=== PATIENT | female | born 1985 | race Caucasian/White ===

== ENCOUNTER → 2020-02-19 09:43 | Observation (INO) ==
[2020-02-18 20:25] LABS: Basophils % 0.2 %; Eosinophils # 0.1 K/mcL (0.0-0.6); Eosinophils % 0.4 %; Hematocrit 36.8 % (35.3-44.9); Hemoglobin 12.7 g/dL (11.5-15.4); Immature Granulocytes % 0.4 % (0-4); Lymphocytes # 1.8 K/mcL (0.6-4.6); Lymphocytes % 11.6 %; Mean Corpuscular HGB Conc 34.5 g/dL (31.6-35.5); Mean Corpuscular Hemoglobin 31.3 pg (28.0-33.3); Mean Corpuscular Volume 90.6 fL (83.0-100.0); Mean Platelet Volume 10.5 fL (9.4-12.4); Monocytes # 0.9 K/mcL (0.0-1.3); Monocytes % 5.8 %; Neutrophils # 12.8 K/mcL (1.6-8.9); Platelet Count 201 K/mcL (140-400); Red Blood Count 4.06 M/mcL (3.82-4.97); Red Cell Distribution Width 12.3 % (11.5-14.5); Segmented Neutrophils % 81.6 %; White Blood Count 15.7 K/mcL (4.3-11.1)
[2020-02-18 20:32] LABS: Prothrombin Time 11.1 Seconds (9.4-12.1)
[2020-02-18 20:35] LABS: Activated Partial Thrombo Time 28.3 Seconds (26.0-36.0)
== END | disposition home or self-care (01) ==
LOC: 1NENULAB
PROVIDERS: ADMIT Obstetrics & Gynecology; ATTEND Obstetrics & Gynecology

== ENCOUNTER 2020-03-16 06:09 | Inpatient (IN) ==
[2020-03-16] MEDS ORDERED: CeFAZolin 2,000 MG/50 ML BAG IVPB ONE (06:19)
[2020-03-16] MEDS ORDERED: Ringers Solution, Lactated 1,000 ML IVC ONE (06:19)
[2020-03-16] MEDS ORDERED: Famotidine 20 MG/2 ML VIAL IVP ONE (06:19)
[2020-03-16] MEDS ORDERED: Metoclopramide 10 MG/2 ML VIAL IVP ONE (06:19)
[2020-03-16 06:54] LABS: Basophils % 0.3 %; Eosinophils # 0.1 K/mcL (0.0-0.6); Eosinophils % 0.9 %; Hematocrit 35.6 % (35.3-44.9); Hemoglobin 12.3 g/dL (11.5-15.4); Immature Granulocytes % 0.8 % (0-4); Lymphocytes % 17.3 %; Mean Corpuscular HGB Conc 34.6 g/dL (31.6-35.5); Mean Corpuscular Hemoglobin 31.3 pg (28.0-33.3); Mean Corpuscular Volume 90.6 fL (83.0-100.0); Mean Platelet Volume 11.1 fL (9.4-12.4); Monocytes % 8.3 %; Neutrophils # 8.5 K/mcL (1.6-8.9); Platelet Count 179 K/mcL (140-400); Red Blood Count 3.93 M/mcL (3.82-4.97); Red Cell Distribution Width 12.8 % (11.5-14.5); Segmented Neutrophils % 72.4 %; White Blood Count 11.8 K/mcL (4.3-11.1)
[2020-03-16] MEDS ORDERED: Oxytocin 20 units/ LR 1000 mL 20 UNIT/1,000 ML BAG IVC ONE (07:45)
[2020-03-16] MEDS ORDERED: Ringers Solution, Lactated 1,000 ML ONE (07:51)
[2020-03-16 07:58] LABS: Adenovirus Not Detected (Not Detect); Bordetella Pertussis Not Detected (Not Detect); Chlamydophila pneumoniae Not Detected (Not Detect); Coronavirus 229E Not Detected (Not Detect); Coronavirus HKU1 Not Detected (Not Detect); Coronavirus NL63 Not Detected (Not Detect); Coronavirus OC43 Not Detected (Not Detect); Human Metapneumovirus Not Detected (Not Detect); Human Rhinovirus/Enterovirus DETECTED (Not Detect); Influenza A Subtype 2009 H1 Not Detected (Not Detect); Influenza B Not Detected (Not Detect); Mycoplasma pneumoniae Not Detected (Not Detect); Parainfluenza Virus 1 Not Detected (Not Detect); Parainfluenza Virus 2 Not Detected (Not Detect); Parainfluenza Virus 3 Not Detected (Not Detect); Parainfluenza Virus 4 Not Detected (Not Detect); Respiratory Syncytial Virus Not Detected (Not Detect); SARS-CoV-2 Not Detected (Not Detect)
[2020-03-16] MEDS ORDERED: Ondansetron 4 MG/2 ML VIAL ONE (08:10)
[2020-03-16] MEDS ORDERED: Dexamethasone 4 MG/ML VIAL ONE (08:10)
[2020-03-16] MEDS ORDERED: *HR* Morphine Sulfate/PF 10 MG/10 ML AMPUL ONE (08:11)
[2020-03-16] MEDS ORDERED: *HR* Phenylephrine 10 MG/ML VIAL ONE (08:30)
[2020-03-16] MEDS ORDERED: Acetaminophen IV 1,000 MG/100 ML INFUS..BTL ONE (09:37)
[2020-03-16] MEDS ORDERED: Oxytocin 20 units/ LR 1000 mL 20 UNIT/1,000 ML BAG IVC SCH ×2 (12:20)
[2020-03-16] MEDS ORDERED: Ondansetron 4 MG/2 ML VIAL IVP PRN (12:20)
[2020-03-16] MEDS ORDERED: Simethicone 80 MG TAB.CHEW PO PRN (12:20)
[2020-03-16] MEDS ORDERED: Sennosides 8.6 MG TABLET PO PRN (12:20)
[2020-03-16] MEDS ORDERED: Ringers Solution, Lactated 1,000 ML IVC SCH (12:20)
[2020-03-16] MEDS ORDERED: Rho Immune Globulin 1,500 UNIT SYRINGE IM ONE (12:20)
[2020-03-16] MEDS ORDERED: Metoclopramide 10 MG/2 ML VIAL IVP PRN (12:20)
[2020-03-16] MEDS: Ibuprofen 600 MG TABLET PO PRN ×2 (13:24→21:04)
[2020-03-16] MEDS: *HR* OxyCODONE/APAP 5/325 TABLET PO PRN ×2 (14:25→21:05)
[2020-03-17] MEDS: Ibuprofen 600 MG TABLET PO PRN (04:32)
[2020-03-17] MEDS: *HR* OxyCODONE/APAP 5/325 TABLET PO PRN ×2 (04:33→09:15)
[2020-03-17 07:19] LABS: Basophils % 0.2 %; Eosinophils # 0.1 K/mcL (0.0-0.6); Eosinophils % 0.6 %; Hematocrit 29.3 % (35.3-44.9); Immature Granulocytes % 0.6 % (0-4); Lymphocytes % 12.6 %; Mean Corpuscular HGB Conc 32.8 g/dL (31.6-35.5); Mean Corpuscular Hemoglobin 30.2 pg (28.0-33.3); Mean Corpuscular Volume 92.1 fL (83.0-100.0); Mean Platelet Volume 10.9 fL (9.4-12.4); Monocytes # 1.4 K/mcL (0.0-1.3); Monocytes % 8.4 %; Neutrophils # 12.5 K/mcL (1.6-8.9); Platelet Count 175 K/mcL (140-400); Red Blood Count 3.18 M/mcL (3.82-4.97); Red Cell Distribution Width 12.5 % (11.5-14.5); Segmented Neutrophils % 77.6 %; White Blood Count 16.1 K/mcL (4.3-11.1)
[2020-03-17 07:20] LABS: Hemoglobin 9.6 g/dL (11.5-15.4)
[2020-03-17 08:19] VITALS: BP 107/67
[2020-03-17] MEDS ORDERED: Prenatal Vit/FA 1 EACH TABLET PO SCH (09:00)
== END 2020-03-17 14:30 | disposition home or self-care (01) | DRG 539 ==
LOC: 1NENULAB 06:09 → EDSTATUS 07:45 → 1NENUOBS 12:18
PROVIDERS: ADMIT Obstetrics & Gynecology; ATTEND Obstetrics & Gynecology